=== PATIENT | male | born 1955 ===

== ENCOUNTER 2019-12-15 14:51 | Emergency (ER) | payer OTHER, MEDICAID, SELFPAY ==
[2019-12-15] VITALS (8 sets, daily range): BP systolic 115–245; BP diastolic 62–119; PULSE 42–76; RESP 10–28; TEMP 36.7; O2SAT 96–100
--- NOTE | 2019-12-15 14:58 | DI.CT.S_ITS ---
PROCEDURE: CT STROKE INDICATIONS: code stroke TECHNIQUE: Noncontrast 4.5 mm thick angled axial sections acquired from the foramen magnum to the vertex, with coronal reformats. For radiation dose reduction, the following was used: automated exposure control, adjustment of mA and/or kV according to patient size. COMPARISON: None. FINDINGS: Image quality: Excellent. CSF spaces: Basal cisterns are patent but demonstrate extensive subarachnoid hemorrhage, left slightly greater than right, tracking cephalad into the interhemispheric falx.. No extra-axial fluid collections. Ventricles are normal in size and shape. Brain: No midline shift. No intracranial masses or hemorrhage. Tran-white matter interface is normal. Skull and face: Calvarium and visualized facial bones are intact, without suspicious lesions. Sinuses: Visualized sinuses and mastoids are clear. IMPRESSION: There is a large subarachnoid hemorrhage with epicenter at the crow of Ma region, suprasellar cistern, with the suprasellar cistern and adjacent para pontine subarachnoid space is opacified by high density blood. This is slightly greater on the right than the left with an appearance potentially a manifestation of aneurysm bleed. The hemorrhage also is seen to be more prominent within the sylvian fissure on the right than the left. Note is made of mild prominence of the ventricles, potentially a manifestation of early ventriculomegaly associated from intracranial hemorrhage. A focal brain parenchymal mass or hemorrhage is not seen. Findings immediately called to the emergency room physician caring for the patient. This study fulfills neurological imaging criteria for inclusion or exclusion of acute stroke therapies based on available published neurological imaging guidelines. Dictated by: Ang Hernandez M.D. on 12/15/2019 at 15:04 Approved by: Ang Hernandez M.D. on 12/15/2019 at 15:07
--- NOTE | 2019-12-15 15:13 | ED_ITS ---
HPI - General Adult General Chief complaint: Neuro Symptoms/Deficit Stated complaint: Unresponsive Time Seen by Provider: 12/15/19 14:51 Source: family and EMS Mode of arrival: EMS Limitations: altered mental status History of Present Illness HPI narrative: 64-year-old male arrived by EMS for evaluation of altered mental status. As reported by EMS that [place] Was eating a late lunch with family. Got up to use the restroom. Apparently vomited multiple times in the bathroom. Was able to walk back onto the table but then became ?unresponsive. Was some concern about had aspiration at the scene per EMS. Patient was maintaining his own airway. Was hypertensive with systolic blood pressures greater than 200. His blood sugar by EMS was greater than 100. EMS reports he was having fast respiratory rate than a slow respiratory rate. He states that his heart rate was in the 60s. IVs were started. No Narcan administered. Patient unable to provide any HPI Review of Systems Review of Systems ROS Unobtainable: Unobtainable due to mental status/LOC Patient History Medical History Coronary artery disease (Acute) Hypertension (Acute) Social History marital status: Exam Initial Vital Signs Initial Vital Signs: Vital Signs Pulse Rate 69 12/15/19 15:51 Respiratory Rate 22 12/15/19 15:51 Blood Pressure 115/62 12/15/19 15:51 Pulse Oximetry 96 12/15/19 15:51 Const General: ill appearing Limitations: altered mental status HENKS Head: normal to inspection and normocephalic Eyes Eyelids: eyelids normal Other: Right pupil 8 mm, left pupil 6 mm, nonreactive, does have a corneal reflex Neck Neck: normal visual inspection Chest Chest: normal inspection of the chest Resp Effort & Inspection: decreased respiratory effort, labored and not tachypneic Other: Decreased breath sounds bilaterally Cardio Rate: bradycardic Rhythm: regular rhythm Pulses: radial pulses present GI Palpation: soft Skin Lesions: no lesions Rashes: no rashes Neuro Other: GCS of 7, does cough, does have a gag reflex, does have corneal reflex, does not spontaneously move extremities, does localize to noxious stimuli Extrem General: normal to inspection, capillary refill normal and No edema Psych Appearance: well kempt Procedures Intubation Time out performed: Yes sedative: Etomidate Mg Given: 20 paralytic: Succinylcholine Mg Given: 120 Laryngoscope: fiber optic video scope ET Tube Size: 7.5 ET Tube Uncuffed: No Tube Secured Location: teeth Tube Placement Confirmation: Visualized tube passing through cords Patient Tolerated Procedure: Well Intubation Complications: none Scores GCS Armen coma scale eye opening: None Armen coma scale verbal response: None Armen coma scale motor response: Localising Armen coma scale total score: 7 Course Orders Ordered: ED Orders 12/15/19 14:52 Urine Drug Screen, Rapid Stat 12/15/19 14:53 EKG-12 Lead Stat 12/15/19 14:58 CT Stroke Stat 12/15/19 15:17 Chest [XR chest 1V] Stat 12/15/19 15:23 Acetaminophen Stat Complete Blood Count AUTO DIFF Stat Comprehensive Metabolic Panel Stat Ethanol (ETOH) Stat Lipase Stat Partial Thromboplastin Time Stat Procalcitonin Stat Prothrombin Time INR Stat Salicylate Stat Troponin I Stat Vital Signs Vital signs: Vital Signs - 8 hr 12/15/19 15:51 Pulse Rate 69 Respiratory Rate 22 Blood Pressure [Left Arm] 115/62 Pulse Oximetry 96 Medical Decision Making Lab Data Lab results reviewed: Yes I reviewed the patient's lab results. Result diagrams: 12/15/19 15:23 12/15/19 15:23 Labs: Lab Results 12/15/19 12/15/19 12/15/19 Range/Units 15:23 15:23 15:23 WBC 15.1 H (4.5-11.0) X10^3/uL RBC 5.47 (4.5-5.9) X10^6/uL Hgb 16.2 (13.5-17.5) g/dL Hct 47.7 (41-53) % MCV 87.2 (80-100) fL MCH 29.5 (26-34) PG MCHC 33.9 (30-36) % RDW 14.8 (11.6-14.8) % Plt Count 249 (150-400) X10^3/uL Neut % (Auto) 67.3 (50-75) % Lymph % (Auto) 19.1 L (25-40) % Garrett % (Auto) 8.0 (3-14) % Eos % (Auto) 4.5 H (2-4) % Baso % (Auto) 1.1 (0-2) % Neut # (Auto) 14457 H (6917-4797) /uL Lymph # (Auto) 2900 (7983-3294) /uL Garrett # (Auto) 1200 H (0-900) /uL Eos # (Auto) 700 H (0-450) /uL Baso # (Auto) 200 H (0-100) /uL PT 11.3 (10.1-12.7) SECONDS INR 1.0 (0.9-1.3) APTT 28 (26.4-36.2) SECONDS Ammonia Cancelled Imaging Data CT scan - head: Radiologist's Impression: [address] [address] [address] Scan Report Signed Patient: Delio HoovertMR#: [id number] : 6Acct:[id number] Age/Sex: 64 / MDate of Service: 12/15/19 Loc: ED Accession Number: [id number] Procedure: CT Stroke Ordering Provider: García Blcakwood D.O. PROCEDURE: CT STROKE INDICATIONS: code stroke TECHNIQUE: Noncontrast 4.5 mm thick angled axial sections acquired from the foramen magnum to the vertex, with coronal reformats. For radiation dose reduction, the following was used: automated exposure control, adjustment of mA and/or kV according to patient size. COMPARISON: None. FINDINGS: Image quality: Excellent. CSF spaces: Basal cisterns are patent but demonstrate extensive subarachnoid hemorrhage, left slightly greater than right, tracking cephalad into the interhemispheric falx.. No extra-axial fluid collections. Ventricles are normal in size and shape. Brain: No midline shift. No intracranial masses or hemorrhage. Tran-white matter interface is normal. Skull and face: Calvarium and visualized facial bones are intact, without suspicious lesions. Sinuses: Visualized sinuses and mastoids are clear. IMPRESSION: There is a large subarachnoid hemorrhage with epicenter at the [place] of Ma region, suprasellar cistern, with the suprasellar cistern and adjacent para pontine subarachnoid space is opacified by high density blood. This is slightly greater on the right than the left with an appearance potentially a manifestation of aneurysm bleed. The hemorrhage also is seen to be more prominent within the sylvian fissure on the right than the left. Note is made of mild prominence of the ventricles, potentially a manifestation of early ventriculomegaly associated from intracranial hemorrhage. A focal brain parenchymal mass or hemorrhage is not seen. Findings immediately called to the emergency room physician caring for the patient. This study fulfills neurological imaging criteria for inclusion or exclusion of acute stroke therapies based on available published neurological imaging guidelines. Dictated by: Ang Hernandez M.D. on 12/15/2019 at 15:04 Approved by: Ang Hernandez M.D. on 12/15/2019 at 15:07 Chest x-ray: Radiologist's Impression: [address] [address] XRay Report Signed Patient: Delio HoovertMR#: [id number] : 6Acct:[id number] Age/Sex: 64 / MDate of Service: 12/15/19 Loc: ED Accession Number: [id number] Procedure: XR chest 1V Ordering Provider: García Blackwood D.O. PROCEDURE: XR CHEST 1V INDICATIONS: post intubation TECHNIQUE: One view of the chest was acquired. COMPARISON: [facility], , XR CHEST 1 VIEW, 01/16/2019, 16:41. FINDINGS: Surgical changes and devices: Endotracheal tube is identified with the tip positioned approximately 6 cm above the level of the viet. Lungs and pleura: Lungs are clear. No pleural effusions or pneumothorax. Mediastinum: Mediastinal contours appear normal. Heart size is normal. Bones and chest wall: No suspicious bony lesions. Overlying soft tissues appear unremarkable. IMPRESSION: Endotracheal tube appears to be in appropriate position. Dictated by: Adolfo Martínez M.D. on 12/15/2019 at 14:31 Approved by: Adolfo Martínez M.D. on 12/15/2019 at 14:32 MDM Narrative Medical decision making narrative: Patient was sent directly to the CT scan upon arrival. In the CT scan he was ?gurgling ?per nursing report. He was turned on his side. There was a small amount of vomitus. When the patient made it to the exam room he was intubated as described above for airway protection. Was hypertensive. Bradycardic to the upper 50s. Initial GCS is 7. No issues with the intubation. The endotracheal tube was advanced slightly after his chest x- ray. We were unable to pass an NG/OG secondary to resistance. Patient was started on nicardipine. Also started on propofol. Goal blood pressure less than [address] shows subarachnoid hemorrhage. [facility] contacted. Discussed the case with Dr. Young with [facility]. 300 cc of 3% saline administered. Patient also given mannitol. Patient's blood pressure improving. Will prepare to give esmolol if needed. Patient not on blood thinners requiring reversal. Patient currently stable for transfer. Critical Care Time Critical Care Time Critical Care Time: Yes Total Critical Care Time: 45 Attestation: The high probability of a clinically significant, sudden or life threatening deterioration of the 45 system(s) required my full and direct attention, intervention and personal management. The aggregate critical care time was neurologic, cardiovascular minutes. This time is in addition to time spent performing reported procedures but includes the following: [] Data Review and interpretation [] Patient assessment and monitoring of vital signs [] Documentation [] Medication orders and management Discharge Plan Departure Patient Disposition: [facility] Clinical Impression: Subarachnoid hemorrhage Hypertension Qualifiers: Hypertension type: unspecified Qualified Code(s): I10 - Essential (primary) hypertension
--- NOTE | 2019-12-15 15:17 | DI.RAD.S_ITS ---
PROCEDURE: XR CHEST 1V INDICATIONS: post intubation TECHNIQUE: One view of the chest was acquired. COMPARISON: [facility], CR, XR CHEST 1 VIEW, 01/16/2019, 16:41. FINDINGS: Surgical changes and devices: Endotracheal tube is identified with the tip positioned approximately 6 cm above the level of the viet. Lungs and pleura: Lungs are clear. No pleural effusions or pneumothorax. Mediastinum: Mediastinal contours appear normal. Heart size is normal. Bones and chest wall: No suspicious bony lesions. Overlying soft tissues appear unremarkable. IMPRESSION: Endotracheal tube appears to be in appropriate position. Dictated by: Adolfo Martínez M.D. on 12/15/2019 at 14:31 Approved by: Adolfo Martínez M.D. on 12/15/2019 at 14:32
[2019-12-15 15:32] LABS: Add Manual Diff / Slide Review NO; Basophils Absolute Auto 200 /uL (0-100); Basophils Percent Auto 1.1 % (0-2); Eosinophils Absolute Auto 700 /uL (0-450); Eosinophils Percent Auto 4.5 % (2-4); Hematocrit 47.7 % (41-53); Hemoglobin 16.2 g/dL (13.5-17.5); Lymphocytes Absolute Auto 2900 /uL (1100-4500); Lymphocytes Percent Auto 19.1 % (25-40); Mean Corpuscular HGB Conc 33.9 % (30-36); Mean Corpuscular Hemoglobin 29.5 PG (26-34); Mean Corpuscular Volume 87.2 fL (80-100); Monocytes Absolute Auto 1200 /uL (0-900); Neutrophils Absolute Auto 10200 /uL (1500-7000); Neutrophils Percent Auto 67.3 % (50-75); Platelet Count 249 X10^3/uL (150-400); Red Blood Cell Count 5.47 X10^6/uL (4.5-5.9); Red Cell Distribution Width 14.8 % (11.6-14.8); White Blood Cell Count 15.1 X10^3/uL (4.5-11.0)
[2019-12-15 15:44] LABS: Prothrombin Time 11.3 SECONDS (10.1-12.7)
[2019-12-15 15:47] LABS: PTT Partial Thromboplastin Tim 28 SECONDS (26.4-36.2)
[2019-12-15 16:07] LABS: Procalcitonin < 0.05 ng/mL (<0.5)
[2019-12-15 16:39] LABS: Acetaminophen < 10 ug/mL (10-30); Alanine Aminotransferase 19 IU/L (<50); Albumin 4.9 g/dL (3.5-5.0); Albumin Globulin Ratio 1.4 (1.0-2.8); Alkaline Phosphatase 121 U/L (38-126); Aspartate Aminotransferase 35 IU/L (17-59); Bilirubin Total 0.9 mg/dL (0.2-1.3); Blood Urea Nitrogen 19 mg/dL (9-20); Calcium 9.7 mg/dL (8.4-10.2); Carbon Dioxide 20 mmol/L (22-32); Chloride 107 mmol/L (98-107); Estimated Glomerular Filt Rate > 60.0 mL/min (>60); Ethanol (ETOH) < 10 mg/dL; Globulin 3.6 g/dL (1.7-4.1); Glucose 255 mg/dL (80-110); HEMOLYSIS 50 (0-50); Lipase 75 U/L (23-300); Potassium 4.1 mmol/L (3.4-5.1); Sodium 141 mmol/L (137-145); Total Protein 8.5 g/dL (6.3-8.2)
--- NOTE | 2019-12-15 16:48 | PC.NURSE ---
Summary Nursing Note: Pt arrived in critical condition via [facility]. (Code Stroke called @ 0852). Pt direct to CT. CT revealed intracranial bleed. Dr. Blackwood to room 2. Pt intubated w/ 7.5 ETT. Placed on ventilator. Pt started on propofol gtt for sedation, nicardipine gtt (titrated to effect). Initial neuro exam demonstrated equal but sluggish pupils. Repeat exam showed Left > Right w/ Left fixed, right sluggish. + Dolls Eyes, + corneal reflexes, + gag reflex. No response to painful (or any other) stimulation. GCS 3 but respiratory effort keeping sats > 90% w/ oxygen support and manual support of airway. Upon transfer, pt had left pupil < 2mm and fixed, right 8 mm and fixed. Continues to have dolls eyes, no gag reflex noted. Continues to have no response to painful stimulus. GCS is 3T. Pt was given 3% NS and Manitol at the direction of [facility] accepting providers. [facility] to ensure enough for transport to [facility]. Upon transfer to [facility] crew @1600 Nicardipine running @ 7.5mg / hour, Manitorl running over 20 min, Propfol @ 20 mcg/kg/min. 3% NS completed prior to [facility] leaving room 2 @ 1620. Report faxed to [facility] Family walked to watch launch, support given, questions answered.
[2019-12-15 16:50] LABS: Troponin I < 0.012 ng/mL (0.01-0.034)
[2019-12-15 17:19] LABS: Fractionated Inspired Oxygen 100; HCO3 ABG 26 mmol/L (22-26); Oxygen Saturation ABG 100 % (95-100); PCO2 ABG 53.4 mmHg (35-45); PO2 ABG 229 mmHg (80-100); TCO2 ABG 28 mmol/L (21-31)
--- NOTE | 2019-12-15 18:15 | RT ---
ETT ADVANCED POST CXR FROM 23 TO 25 CM AND LIP. ED DOCTOR AWARE. ED DOCTOR ALSO AWARE OF ALL VENT SETTINGS AND ABG RESULT.
== END 2019-12-15 16:20 | disposition short-term general hospital (02) ==
LOC: ED 15:39
PROVIDERS: Emergency Provider Emergency Medicine
DX: I60.9 Nontraumatic subarachnoid hemorrhage, unspecified (principal); I10 Essential (primary) hypertension; I25.10 Atherosclerotic heart disease of native coronary artery without angina pectoris
CPT/HCPCS: 31500; 36415; 36600; 70450; 71045; 80053; 80320; 80329; 82805; 83690; 84145; 84484; 85025; 85610; 85730; 92950; 94770; 94799; 99284; 99291; 99292; G0480